=== PATIENT | female | born 1985 | race Caucasian/White ===

== ENCOUNTER 2024-05-13 17:18 | Emergency (ER) | payer OTHER ==
[2024-05-13 17:54] VITALS: BP 139/93; PULSE 76
== END 2024-05-13 19:45 | disposition home or self-care (01) ==
LOC: LL.ED 17:18
DX: S69.92XA Unspecified injury of left wrist, hand and finger(s), initial encounter (principal); Z79.899 Other long term (current) drug therapy; W19.XXXA Unspecified fall, initial encounter; Y99.0 Civilian activity done for income or pay; Y92.89 Other specified places as the place of occurrence of the external cause
CPT/HCPCS: 73140-F2; 99283